=== PATIENT | female | born 1975 | race Caucasian/White ===

== ENCOUNTER 2023-06-10 23:45 | Inpatient (IN) ==
[2023-06-11] MEDS ORDERED: ONDANSETRON INJ 2 MG/ML 2 ML VIAL IV STA (00:01)
[2023-06-11] MEDS ORDERED: MoRPHine SULFATE 4 MG/ML 1 ML CARP\\VIAL IV STA ×2 (00:01→00:39)
--- NOTE | 2023-06-11 00:20 | Emergency Department Note ---
Impression & Plan Abdominal pain, Nausea & vomiting, Acute cholecystitis, Cholelithiasis, Choledocholithiasis ED Provider Note ED Provider Note NAME: ADI CISNEROS AGE:47 SEX: Female : 1975 ARRIVES VIA: private vehicle INFORMANT: Patient ED PROVIDER(s): Cha Madden DO CHIEF COMPLAINT: Abdominal pain, nausea and vomiting HPI: This is a 47-year-old female who presents emergency department due to concern for abdominal pain, nausea and vomiting. Patient states symptoms began almost 24 hours ago early in the morning of the and woke her up from sleep. She states she has epigastric abdominal pain that seems to radiate through to her right mid back and up under her right shoulder. She states she had nausea and recurrent vomiting. Patient states she vomited multiple times, no blood noted. She states after several hours the pain seemed to slowly resolve and she was able to sleep. She states she felt better during the day today and then this evening symptoms began again and were worsening. She states after several hours now the symptoms have not resolved. She states the pain is constant, and she cannot find a comfortable position. She states she had several episodes of vomiting again. No recent black or bloody stools. She does have a history of eosinophilic esophagitis although states this feels very different. She has had prior hysterectomy. No history of bowel obstructions. No other recent change in diet, no known sick contact. PAST MEDICAL HISTORY:See Below PAST SURGICAL HISTORY:See Below FAMILY HISTORY:See Below SOCIAL HISTORY:See Below HOME MEDICATIONS:See Below ALLERGIES:See Below VITALS:See Below PHYSICAL EXAMINATION: GENERAL: alert, unwell appearing, well nourished, moderate distress, holding emesis bag EYE EXAM: normal conjunctiva, PERRL and EOM's grossly intact OROPHARYNX: no exudate, no erythema, lips, buccal mucosa, and tongue normal and mucous membranes are moist NECK: supple, no nuchal rigidity, no adenopathy, non-tender LUNGS: Clear to auscultation. Normal chest wall mechanics, no w/r/r HEART: no murmurs, S1 normal and S2 normal ABDOMEN: abdomen soft, epigastric tenderness with palpation, normo-active bowel sounds, no masses, no rebound or guarding. BACK: Back is symmetrical on inspection and there is no deformity, no midline tenderness, no CVA tenderness. SKIN: no rashes, petechiae, orbruising UPPER EXTREMITIES: upper extremities are grossly normal. FROM, nml pulses b/l. LOWER EXTREMITIES: No pitting edema. FROM, nml pulses b/l. NEURO EXAM: Normal sensorium, cranial nerves II-XII grossly intact, normal speech, no facial droop,nogross weakness of arms, no gross weakness of legs. Gross sensation intact. No ataxia. Vital Signs: reviewed and remarkable Differential Diagnosis: Gastritis, esophagitis, perforation, GI bleed, cholecystitis, pancreatitis, colitis, bowel obstruction, ACS, dissection, as well as others were considered MEDICAL DECISION MAKING: This is a 47-year-old female presents emergency department with abdominal pain, nausea and vomiting. Patient uncomfortable appearing in moderate distress on arrival holding emesis bag. She was afebrile and vital signs otherwise stable, mild hypertension noted, likely secondary to pain. Labs drawn and sent, IV established, EKG performed at bedside and interpreted by me and patient monitored on telemetry. Patient sent for upper abdominal ultrasound which did reveal acute cholecystitis and choledocholithiasis. Patient's labs are reassuring. She was given IV fluids, IV Zofran, and several doses of IV morphine which did not significantly improve her pain. She was then given IV Dilaudid additionally and IV Tylenol. Patient seen by CICI with general surgery who recommended admission by hospitalist team to the need for additional GI consultation and likely MRCP. Consultation(s): 0310: Discussed with Dayday Zhang PA-C, with general surgery. He will evaluate the patient at bedside. Recommends hospitalist admission due to common bile duct stone and need for GI evaluation and possible MRCP. 0332: Discussed with Dr. Larkin, [facility] hospitalist team, for additional evaluation. ER Treatment Provided: See below Diagnostics Interpreted By Me: -ECG: Sinus bradycardia 55, left axis, normal intervals, no acute ST/T wave changes -Cardiac Monitoring: An order was placed for continuous cardiac monitoring. The monitor shows a rate of 78 with normal sinus rhythm. -Laboratory studies: As stated above and show below. -Imaging studies: [] Triage Nursing Note Reviewed Prior/Outside Records Reviewed Procedures: [] Critical Care: [] Past Med/Surg History Medical History Hypokalemia Flushing reaction Surgical History History of bladder surgery 2 different occasions History of surgery on left wrist History of tubal ligation History of tonsillectomy and adenoidectomy Family History Grandmother (Maternal) Colon cancer Colonic polyp Family/Other Obesity Social History Smoking Status: Never smoker Hx Alcohol Use: No Hx Substance Use: No Feels Safe at Home: Yes Allergies Allergies Allergy/AdvReac Type Severity Reaction Status Date / Time house dust Allergy Verified 04/11/21 09:34 mold Allergy Verified 04/11/21 09:34 No Known Drug Allergies Allergy Verified 04/11/21 09:34 cockroaches Allergy Uncoded 04/11/21 09:34 Home Meds Home Medications Medication Instructions Recorded Confirmed albuterol sulfate 90 mcg/actuation 1 inh inhalation DAILY PRN 04/11/21 04/11/21 aerosol inhaler (Ventolin HFA) shortness of breath or wheezing diphenhydramine HCl 25 mg capsule 25 mg PO .COMPLEX 04/11/21 04/11/21 (Benadryl) epinephrine 0.3 mg/0.3 mL 0.3 mg IM Q10M PRN 04/11/21 04/11/21 injection, auto-injector (EpiPen 2-Efrain) famotidine 10 mg tablet (Pepcid AC) 10 mg PO DAILY PRN 04/11/21 04/11/21 fluticasone propionate 50 2 spray intranasal DAILY PRN nasal 04/11/21 04/11/21 mcg/actuation nasal congestion spray,suspension Results & Data (ED) Vital Signs Vital Signs - 24 hr 06/10/23 23:51 06/11/23 02:00 Temperature 36.5 C Temperature Source Temporal Artery Scan Pulse Rate 77 Pulse Rate [Finger] 92 H Pulse Rhythm [Finger] Regular Pulse Strength [Finger] Normal Respiratory Rate 20 20 Respiratory Effort / Characteristics Non-Labored Spontaneous Non-Labored Spontaneous Respiratory Depth Normal Normal Respiratory Pattern Regular Blood Pressure 157/102 H Blood Pressure [Left Arm] 160/102 H Blood Pressure Mean 120 Blood Pressure Mean [Left Arm] 121 Blood Pressure Position Sitting Blood Pressure Position [Left Arm] Lying Pulse Oximetry 98 97 Oxygen Delivery Method Room Air Room Air Sepsis Recent Fever Within 48 Hours No Sepsis New/Unexplained Change in Mental Status N/A Sepsis Action Taken by Nursing No Action Required Laboratory Data 06/11/23 00:10 06/11/23 00:10 Lab Results 06/11/23 Range/Units 00:10 WBC 10.24 (4.8-10.8) K/ul RBC 4.89 (4.20-5.40) M/uL Hgb 12.8 (12.0-16.0) g/dl Hct 39.2 (37.0-47.0) % MCV 80.2 (80.0-100.0) fL MCH 26.2 (25.0-34.0) pg MCHC 32.7 (32.0-36.0) g/dL RDW Std Deviation 40.4 (36.4-46.3) fL RDW Coeff of María 14.0 (11.5-14.5) % Plt Count 323 (130-400) K/uL MPV 10.0 (9.4-12.4) fL Immature Gran % (Auto) 0.4 % Neut % (Auto) 74.8 % Lymph % (Auto) 18.8 % [place] % (Auto) 4.0 % Eos % (Auto) 1.6 % Baso % (Auto) 0.4 % Neut # (Auto) 7.66 H (1.40-6.50) K/uL Lymph # (Auto) 1.93 (1.20-3.40) K/uL [place] # (Auto) 0.41 (0.11-0.59) K/uL Eos # (Auto) 0.16 (0.00-0.50) K/uL Baso # (Auto) 0.04 (0.00-0.20) K/uL Immature Gran # (Auto) 0.04 (0.01-0.20) K/uL PT 10.5 (9.0-12.0) Seconds INR 1.0 (0.9-1.1) Sodium 140 (136-145) mmol/L Potassium 4.0 (3.5-5.1) mmol/L Chloride 107 (98-107) mmol/L Carbon Dioxide 24 (21-32) mmol/L Anion Gap 9 (3-11) BUN 18 (6-23) mg/dl Creatinine 0.64 (0.6-1.2) mg/dl Est Cr Clr Drug Dosing Not Reportable Est GFR ( Amer) 122.3 ml/min Est GFR (Non-Af Amer) 105.5 ml/min BUN/Creatinine Ratio 28.1 H (10-20) Glucose 107 H (70-99(Fasting)) mg/dl Calcium 9.9 (8.6-10.3) mg/dl Magnesium 1.9 (1.7-2.4) mg/dl Total Bilirubin 0.9 (0.2-1.0) mg/dl AST 15 (13-39) U/L ALT 11 (7-52) U/L Alkaline Phosphatase 72 (34-104) U/L Troponin I High Sens < 2.3 (0-14) pg/ml Total Protein 7.5 (6.0-8.3) gm/dl Albumin 4.3 (3.4-5.0) gm/dl Globulin 3.2 (2.5-4.0) gm/dl Albumin/Globulin Ratio 1.3 (0.9-2) Lipase 33 (11-82) U/L Administered Medications Hydromorphone HCl (Hydromorphone Inj 0.5 Mg/0.5 Ml Syr) 0.5 mg IV Q15M PRN PRN Reason: Pain Stop: 06/25/23 01:34 Last Admin: 06/11/23 03:31 Dose: 0.5 mg Documented By: Admin: 06/11/23 01:40 Dose: 0.5 mg Documented By: MIC Discontinued Medications Acetaminophen (Ofirmev) 1,000 mg in 100 mls @ 400 mls/hr IV NOW STA Stop: 06/11/23 01:56 Last Infusion: 06/11/23 02:09 Dose: Infused Documented By: Admin: 06/11/23 01:45 Dose: 400 mls/hr Documented By: MIC Morphine Sulfate (Morphine Sulfate 4 Mg/Ml 1 Ml Carp\Vial) 4 mg IV NOW STA Stop: 06/11/23 00:02 Last Admin: 06/11/23 00:16 Dose: 4 mg Documented By: NAW Morphine Sulfate (Morphine Sulfate 4 Mg/Ml 1 Ml Carp\Vial) 4 mg IV NOW STA Stop: 06/11/23 00:40 Last Admin: 06/11/23 00:42 Dose: 4 mg Documented By: MIC Ondansetron HCl (Ondansetron Inj 2 Mg/Ml 2 Ml Vial) 4 mg IV NOW STA Stop: 06/11/23 00:02 Last Admin: 06/11/23 00:16 Dose: 4 mg Documented By: MIC Imaging Data Radiologist's Impression: Abdomen Ultrasound 06/11/23 00:01 Exam(s): US ABDOMEN LIMITED EXAM: US Abdomen Limited, Right Upper Quadrant CLINICAL HISTORY: Reason for exam: epigastric pain. TECHNIQUE: Real-time ultrasound of the right upper quadrant with image documentation. COMPARISON: None FINDINGS: Liver: Liver measures 18.1 cm. Small hepatic cyst measuring up to 2.2 cm. No intrahepatic bile duct dilation. Gallbladder: Stones and sludge in the gallbladder. Distention of the gallbladder. Nonspecific gallbladder wall thickening and pericholecystic fluid. Positive sonographic Campos's sign. Findings are concerning for acute cholecystitis. Common bile duct: Small stone in the common bile duct measuring 5 mm. No dilation. Normal common bile duct measuring 5.7 mm. Pancreas: Pancreas is not well evaluated due to overlying bowel gas. Right kidney: Right kidney measures 10.7 cm in length. No hydronephrosis or stone. Other vasculature: Patent main portal vein with normal direction of flow. IMPRESSION: Small stone in the common bile duct measuring 5 mm. Stones and sludge in the gallbladder. Gallbladder wall thickening, pericholecystic fluid, and positive sonographic Campos's sign, suggesting acute cholecystitis. Electronically signed by: Natividad Simeon M.D. 06/11/23 03:10 AM Discharge Plan Visit Data Chief Complaint: Abdominal Pain ED Provider: Cha Madden Discharge Problem: Abdominal pain, Nausea & vomiting, Acute cholecystitis, Cholelithiasis, Choledocholithiasis Forms Stand Alone Forms: [facility] Prescriptions Prescriptions: No Action albuterol sulfate [Ventolin HFA] 90 mcg/actuation HFA aerosol inhaler 1 inh inhalation DAILY PRN (Reason: shortness of breath or wheezing) epinephrine [EpiPen 2-Efrain] 0.3 mg/0.3 mL auto-injector 0.3 mg IM Q10M PRN Rx Instructions: for 2 doses famotidine [Pepcid AC] 10 mg tablet 10 mg PO DAILY PRN diphenhydramine HCl [Benadryl] 25 mg capsule 25 mg PO .COMPLEX Rx Instructions: 25 mg PO as needed; fluticasone propionate 50 mcg/actuation spray,suspension 2 spray intranasal DAILY PRN (Reason: nasal congestion) Rx Instructions: administer into each nostril Referrals Referrals: Rd Zaldivar [Primary Care Provider] -
[2023-06-11 00:26] LABS: Basophils # (auto) 0.04 K/uL (0.00-0.20); Basophils % (auto) 0.4 %; Eosinophils # (auto) 0.16 K/uL (0.00-0.50); Eosinophils % (auto) 1.6 %; Hematocrit (blood only) 39.2 % (37.0-47.0); Hemoglobin 12.8 g/dl (12.0-16.0); Immature Granulocytes # (auto) 0.04 K/uL (0.01-0.20); Immature Granulocytes % (auto) 0.4 %; Lymphocytes # (auto) 1.93 K/uL (1.20-3.40); Lymphocytes % (auto) 18.8 %; Mean Corpuscular Hemoglobin 26.2 pg (25.0-34.0); Mean Corpuscular Hgb Conc 32.7 g/dL (32.0-36.0); Mean Corpuscular Volume 80.2 fL (80.0-100.0); Monocytes # (auto) 0.41 K/uL (0.11-0.59); Neutrophils # (auto) 7.66 K/uL (1.40-6.50); Neutrophils % (auto) 74.8 %; Platelet Count 323 K/uL (130-400); RDW Standard Deviation 40.4 fL (36.4-46.3); Red Blood Count 4.89 M/uL (4.20-5.40); White Blood Count 10.24 K/ul (4.8-10.8)
[2023-06-11 00:39] LABS: Alanine Aminotransferase 11 U/L (7-52); Albumin Globulin Ratio 1.3 (0.9-2); Albumin Level 4.3 gm/dl (3.4-5.0); Alkaline Phosphatase 72 U/L (34-104); Anion Gap 9 (3-11); Aspartate Aminotransferase 15 U/L (13-39); BUN Creatinine Ratio 28.1 (10-20); Bilirubin,Total 0.9 mg/dl (0.2-1.0); Blood Urea Nitrogen 18 mg/dl (6-23); Calcium 9.9 mg/dl (8.6-10.3); Carbon Dioxide 24 mmol/L (21-32); Chloride 107 mmol/L (98-107); Est GFR (African American) 122.3 ml/min; Est GFR (Non-African American) 105.5 ml/min; Globulin 3.2 gm/dl (2.5-4.0); Glucose 107 mg/dl (70-99(Fasting)); Lipase 33 U/L (11-82); Magnesium 1.9 mg/dl (1.7-2.4); Sodium 140 mmol/L (136-145); Total Protein 7.5 gm/dl (6.0-8.3)
[2023-06-11 00:46] LABS: Troponin I High Sensitivity < 2.3 pg/ml (0-14)
[2023-06-11 00:57] LABS: Prothrombin Time 10.5 Seconds (9.0-12.0)
[2023-06-11] MEDS: HYDROmorphone INJ 0.5 MG/0.5 ML SYR IV PRN ×8 (01:40→23:35)
[2023-06-11] MEDS ORDERED: ACETAMINOPHEN 1,000 MG/100 ML VIAL IV STA (01:42)
--- NOTE | 2023-06-11 03:11 | Ultrasound Report ---
Exam(s): US ABDOMEN LIMITED EXAM: US Abdomen Limited, Right Upper Quadrant CLINICAL HISTORY: Reason for exam: epigastric pain. TECHNIQUE: Real-time ultrasound of the right upper quadrant with image documentation. COMPARISON: None FINDINGS: Liver: Liver measures 18.1 cm. Small hepatic cyst measuring up to 2.2 cm. No intrahepatic bile duct dilation. Gallbladder: Stones and sludge in the gallbladder. Distention of the gallbladder. Nonspecific gallbladder wall thickening and pericholecystic fluid. Positive sonographic Campos's sign. Findings are concerning for acute cholecystitis. Common bile duct: Small stone in the common bile duct measuring 5 mm. No dilation. Normal common bile duct measuring 5.7 mm. Pancreas: Pancreas is not well evaluated due to overlying bowel gas. Right kidney: Right kidney measures 10.7 cm in length. No hydronephrosis or stone. Other vasculature: Patent main portal vein with normal direction of flow. IMPRESSION: Small stone in the common bile duct measuring 5 mm. Stones and sludge in the gallbladder. Gallbladder wall thickening, pericholecystic fluid, and positive sonographic Campos's sign, suggesting acute cholecystitis. Electronically signed by: Natividad Simeon M.D. 06/11/23 03:10 AM
--- NOTE | 2023-06-11 03:30 | Surgery Consultation ---
Date of Consultation June 11, 2023 Assessment & Plan (1) Choledocholithiasis: (2) Cholelithiasis: I discussed with the treating emergency room physician and recommended medical admission. From surgical perspective we recommend proceeding as follows: Provide analgesics Provide antiemetics Recommend initiating antibiotics. The patient does note that she does not have any known medicines that cause anaphylaxis. Provide IV fluid for hydration Implement n.p.o. status Appears that the patient has cholecystitis by ultrasound and she will likely require cholecystectomy at some point. However, it does appear that the patient has choledocholithiasis on ultrasound and therefore it be prudent to obtain a gastroenterology consultation as patient will likely require an ERCP prior to undergoing cholecystectomy. Serial labs to be followed Additional recommendations will be forthcoming based on the patient's clinical course as unfolds as well as recommendations made by the gastroenterology service Supervising Physician Co-Signing Physician Notes Patient seen and examined, labs and imaging reviewed, agree with above. 47-year-old female presented with signs and symptoms of cholecystitis, ultrasound showed common bile duct stone as well. On exam she is afebrile with stable vitals, her abdomen is soft, tender to palpation in the right upper quadrant. Labs unremarkable. Ultrasound showed cholelithiasis with cholecystitis and 5 mm common bile duct stone. Admitted to medicine service, GI consulted, however there is no biliary coverage until Wednesday. The patient is currently stable, but given the common bile duct stone and the risk for cholangitis, recommend patient transfer to facility with ERCP coverage. History of Present Illness Reason for Consultation: Cholecystitis History of Present Illness This is a 47-year-old female who presented to the emergency department secondary to abdominal pain. The patient notes that the pain began yesterday and was located in the epigastric area as well as the right upper quadrant with some radiation to her back. She notes that the pain is palliated with medicines administered in the emergency department. She did not readily identify any provocative factors specifically noting that it was not apparent that this was related to meals. She did have nausea and vomiting. She denies any fevers, shakes, or chills. She notes that she has had prior abdominal surgeries in the form of a hysterectomy as well as a bladder tacking on 2 occasions. 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 In addition she reports a history of eosinophilic esophagitis Since arrival to the hospital the patient has had labs and imaging which I independent reviewed. A gallbladder ultrasound showed the patient had stones and sludge in the gallbladder with gallbladder wall thickening as well as pericholecystic fluid which were concerning for acute cholecystitis. The patient was also noted to have choledocholithiasis with a 5 mm stone in the co mmon bile duct. Labs include a CBC her white blood cell count, hemoglobin, hematocrit, and platelet count were normal. Chemistry profile showed sodium and potassium along with the BUN and creatinine were normal. There is no elevation of patient's bilirubin, transaminases, alkaline phosphatase, or lipase. At the time of my interview she was resting comfortably in bed and she was no distress Allergies Allergy/AdvReac Type Severity Reaction Status Date / Time house dust Allergy Verified 04/11/21 09:34 mold Allergy Verified 04/11/21 09:34 No Known Drug Allergies Allergy Verified 04/11/21 09:34 cockroaches Allergy Uncoded 04/11/21 09:34 Home Medications Medication Instructions Recorded Confirmed Type albuterol sulfate 90 mcg/actuation 1 inh inhalation DAILY PRN 04/11/21 06/11/23 History aerosol inhaler (Ventolin HFA) shortness of breath or wheezing diphenhydramine HCl 25 mg capsule 25 mg PO DAILY PRN Allergic 04/11/21 06/11/23 History (Benadryl) Symptoms epinephrine 0.3 mg/0.3 mL 0.3 mg IM Q10M PRN Allergic 04/11/21 06/11/23 History injection, auto-injector (EpiPen Reaction 2-Efrain) famotidine 10 mg tablet (Pepcid AC) 10 mg PO DAILY PRN Heartburn 04/11/21 06/11/23 History fluticasone propionate 50 2 spray intranasal DAILY PRN nasal 04/11/21 06/11/23 History mcg/actuation nasal congestion spray,suspension doxylamine succinate 25 mg tablet 25 mg PO HS PRN Sleep 06/11/23 06/11/23 History (Unisom (doxylamine)) Patient History Medical History (Updated 06/11/23 @ 04:26 by Darin Larkin MD) Choledocholithiasis Idiopathic anaphylaxis Eosinophilic esophagitis Hypokalemia Flushing reaction Surgical History History of bladder surgery 2 different occasions History of surgery on left wrist History of tubal ligation History of tonsillectomy and adenoidectomy Family History Grandmother (Maternal) Colon cancer Colonic polyp Family/Other Obesity Social History Smoking Status: Never smoker Hx Alcohol Use: No Hx Substance Use: No Preferred Language: Polish Communication Ability: Effective 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 Beliefs That Will Affect Care: None Current Living Situation: Spouse Other Information That Helps Us Care for You: No Feels Safe at Home: Yes Safety Concerns: Feels Safe At This Time Assistive Devices: Glasses Review of Systems Constitutional: no fever and no chills Ear, Nose, Mouth, Throat: no hearing loss Respiratory: no cough and no dyspnea Cardiovascular: no chest pain Gastrointestinal: as per Subjective / HPI Genitourinary: no dysuria Musculoskeletal: + back pain (Radiating from right upper quadrant) Integumentary: no rash Neurologic: no localized weakness Physical Exam Constitutional: WD/WN, vitals as above Eyes: + anicteric sclerae ENMT: Ears: no hearing impairment and no external ear abnormality Mouth: no oropharynx abnormality No sublingual jaundice noted Neck: trachea midline Respiratory: normal respiratory effort; no respiratory distress and no labored breathing Cardiovascular: Rate/Rhythm: regular rate and regular rhythm Gastrointestinal (Abdomen): Abdomen is soft, nondistended, nonrigid. Bowel sounds are present. There is no rebound tenderness or guarding. The patient did have pain with palpation in the right upper quadrant with a positive Campos sign Musculoskeletal: No calf tenderness Skin: no jaundice Neurologic: moves all extremities Psychiatric: A+Ox3, euthymic affect Results & Data Vital Signs (Past 12 Hours) Vital Signs Temp Pulse Pulse Resp BP BP Pulse Ox 06/11/23 02:00 92 H 20 160/102 H 97 06/10/23 23:51 36.5 C 77 20 157/102 H 98 O2 Del Method 06/11/23 02:00 Room Air 06/10/23 23:51 Room Air PG Care Time/CCT Total # of Minutes Spent Total Time Spent with Patient: Total time spent is greater than 50% in coordination of care (as documented) at patient's floor/unit and/or counseling patient: Coding Level of Care Code 61307 IN/OBS CONSULT LVL 5,80M Diagnoses Choledocholithiasis K80.50 Cholelithiasis K80.20
[2023-06-11] MEDS ORDERED: PIPERACILLIN/TAZOBACTAM 4.5 GM/100 ML BAG IV ONE (03:41)
--- NOTE | 2023-06-11 04:19 | History & Physical Report ---
Date of Service June 11, 2023 Assessment & Plan (1) Acute cholecystitis: (2) Choledocholithiasis: (3) Cholelithiasis: (4) Nausea & vomiting: (5) Abdominal pain: (6) Eosinophilic esophagitis: (7) Idiopathic anaphylaxis: Plan Acute cholecystitis/choledocholithiasis with common bile duct stone 5 mm/cholelithiasis/gallstones and sludge- NPO except ice chips Zofran 4 mg IV every 6 hours as needed Zosyn 4.5 g IV every 8 hours Acetaminophen 1 g IV every 8 hours as needed for mild pain or fever Dilaudid 0.25 mg IV every 3 hours as needed for moderate pain Dilaudid 0.5 mg IV every 3 hours as needed for severe pain NSS + KCl 20 mill equivalents at 100 mL/h Consult to gastroenterology Consult to general surgery Eosinophilic esophagitis- Patient is on oral fluticasone daily, famotidine daily as needed, and diphenhydramine daily as needed, and epinephrine autoinjector as needed While in the hospital and n.p.o. she will be on the following: Methylprednisolone 10 mg IV daily Pantoprazole 40 mg IV daily Famotidine 20 mg IV every 12 hours Idiopathic anaphylaxis- Methylprednisolone, pantoprazole and famotidine IV as noted above Albuterol HFA 2 puffs every 6 hours as needed History of Present Illness Chief Complaint: The patient presents to the emergency department with complaint of nausea, vomiting, epigastric pain radiating around to her right flank, with her first episode at 2:45 in the morning of 06/10, and recurrence later on in the evening of 06/10 Primary Care Provider: Rd Zaldivar The patient is a 47-year-old female with a past medical history including eosinophilic esophagitis, idiopathic anaphylaxis, asthma, and GERD. She presents to the emergency department with symptoms as noted above. Ultrasound of right upper quadrant of abdomen showed gallstones and sludge in the gallbladder, a common bile duct 5 mm stone, and gallbladder wall thickening with pericholecystic fluid suggesting acute cholecystitis Allergies Allergy/AdvReac Type Severity Reaction Status Date / Time house dust Allergy Verified 04/11/21 09:34 mold Allergy Verified 04/11/21 09:34 No Known Drug Allergies Allergy Verified 04/11/21 09:34 cockroaches Allergy Uncoded 04/11/21 09:34 Home Medications Medication Instructions Recorded Confirmed Type albuterol sulfate 90 mcg/actuation 1 inh inhalation DAILY PRN 04/11/21 04/11/21 History aerosol inhaler (Ventolin HFA) shortness of breath or wheezing diphenhydramine HCl 25 mg capsule 25 mg PO .COMPLEX 04/11/21 04/11/21 History (Benadryl) epinephrine 0.3 mg/0.3 mL 0.3 mg IM Q10M PRN 04/11/21 04/11/21 History injection, auto-injector (EpiPen 2-Efrain) famotidine 10 mg tablet (Pepcid AC) 10 mg PO DAILY PRN 04/11/21 04/11/21 History fluticasone propionate 50 2 spray intranasal DAILY PRN nasal 04/11/21 04/11/21 History mcg/actuation nasal congestion spray,suspension Past Med/Surg History Medical History (Updated 06/11/23 @ 04:26 by Darin Larkin MD) Choledocholithiasis Idiopathic anaphylaxis Eosinophilic esophagitis Hypokalemia Flushing reaction Surgical History History of bladder surgery 2 different occasions History of surgery on left wrist History of tubal ligation History of tonsillectomy and adenoidectomy Family History Grandmother (Maternal) Colon cancer Colonic polyp Family/Other Obesity Social History Smoking Status: Never smoker Hx Alcohol Use: No Hx Substance Use: No Feels Safe at Home: Yes Review of Systems Review of Systems: The patient denies chest pain, palpitations, shortness of breath, dyspnea on exertion, cough, lower extremity swelling, sore throat, fevers, chills, sweats, fatigue, diarrhea , constipation,blood in urine or stool, dysuria, urinary frequency or urgency, lightheadedness, dizziness, headache, memory loss, loss of consciousness, rash, abnormal bruising or bleeding, imbalance, focal or generalized weakness, numbness or tingling in arms or legs, generalized arthralgias or myalgias, neck pain, or night sweats. The review of systems is otherwise negative other than for that already noted above, and at least 10 systems have been reviewed. Physical Exam Physical Exam: The patient is awake, alert and oriented 3, well developed and well nourished, normocephalic and atraumatic, lying in bed and in no acute distress. HEENT--PERRL, EOMI, mucous membranes and oropharynx mildly dry. Neck--supple. No JVD. No bruits. Thyroid normal, trachea midline, no adenopathy. Heart--normal S1 and S2. No murmurs, rubs or gallops. Lungs--clear bilaterally, no respiratory distress, no accessory muscle use. Abdomen--normal bowel sounds and soft. Mild tenderness epigastric and right upper quadrant. No hernias or masses, no organomegaly. Morbidly obese Extremities--no cyanosis or clubbing. No edema. Dermatologic--normal skin turgor, normal color, no abnormal lymph nodes, no rash. Neurologic--cranial nerves II through XII grossly intact. Rheumatologic--normal range of motion. Psychiatric--normal affect. Results & Data Results & Data Vital Signs (Past 12 Hours) Vital Signs Temp Pulse Pulse Resp BP BP Pulse Ox 06/11/23 02:00 92 H 20 160/102 H 97 06/10/23 23:51 36.5 C 77 20 157/102 H 98 O2 Del Method 06/11/23 02:00 Room Air 06/10/23 23:51 Room Air Laboratory Results Laboratory Results WBC 10.24 K/ul (4.8-10.8) 06/11/23 00:10 RBC 4.89 M/uL (4.20-5.40) 06/11/23 00:10 Hgb 12.8 g/dl (12.0-16.0) 06/11/23 00:10 Hct 39.2 % (37.0-47.0) 06/11/23 00:10 MCV 80.2 fL (80.0-100.0) 06/11/23 00:10 MCH 26.2 pg (25.0-34.0) 06/11/23 00:10 MCHC 32.7 g/dL (32.0-36.0) 06/11/23 00:10 RDW Std Deviation 40.4 fL (36.4-46.3) 06/11/23 00:10 RDW Coeff of María 14.0 % (11.5-14.5) 06/11/23 00:10 Plt Count 323 K/uL (130-400) 06/11/23 00:10 MPV 10.0 fL (9.4-12.4) 06/11/23 00:10 Immature Gran % (Auto) 0.4 % 06/11/23 00:10 Neut % (Auto) 74.8 % 06/11/23 00:10 Lymph % (Auto) 18.8 % 06/11/23 00:10 [place] % (Auto) 4.0 % 06/11/23 00:10 Eos % (Auto) 1.6 % 06/11/23 00:10 Baso % (Auto) 0.4 % 06/11/23 00:10 Neut # (Auto) 7.66 K/uL (1.40-6.50) H 06/11/23 00:10 Lymph # (Auto) 1.93 K/uL (1.20-3.40) 06/11/23 00:10 [place] # (Auto) 0.41 K/uL (0.11-0.59) 06/11/23 00:10 Eos # (Auto) 0.16 K/uL (0.00-0.50) 06/11/23 00:10 Baso # (Auto) 0.04 K/uL (0.00-0.20) 06/11/23 00:10 Immature Gran # (Auto) 0.04 K/uL (0.01-0.20) 06/11/23 00:10 PT 10.5 Seconds (9.0-12.0) 06/11/23 00:10 INR 1.0 (0.9-1.1) 06/11/23 00:10 Sodium 140 mmol/L (136-145) 06/11/23 00:10 Potassium 4.0 mmol/L (3.5-5.1) 06/11/23 00:10 Chloride 107 mmol/L (98-107) 06/11/23 00:10 Carbon Dioxide 24 mmol/L (21-32) 06/11/23 00:10 Anion Gap 9 (3-11) 06/11/23 00:10 BUN 18 mg/dl (6-23) 06/11/23 00:10 Creatinine 0.64 mg/dl (0.6-1.2) 06/11/23 00:10 Est Cr Clr Drug Dosing Not Reportable 06/11/23 00:10 Est GFR ( Amer) 122.3 ml/min 06/11/23 00:10 Est GFR (Non-Af Amer) 105.5 ml/min 06/11/23 00:10 BUN/Creatinine Ratio 28.1 (10-20) H 06/11/23 00:10 Glucose 107 mg/dl (70-99(Fasting)) H 06/11/23 00:10 Calcium 9.9 mg/dl (8.6-10.3) 06/11/23 00:10 Magnesium 1.9 mg/dl (1.7-2.4) 06/11/23 00:10 Total Bilirubin 0.9 mg/dl (0.2-1.0) 06/11/23 00:10 AST 15 U/L (13-39) 06/11/23 00:10 ALT 11 U/L (7-52) 06/11/23 00:10 Alkaline Phosphatase 72 U/L (34-104) 06/11/23 00:10 Troponin I High Sens < 2.3 pg/ml (0-14) 06/11/23 00:10 Total Protein 7.5 gm/dl (6.0-8.3) 06/11/23 00:10 Albumin 4.3 gm/dl (3.4-5.0) 06/11/23 00:10 Globulin 3.2 gm/dl (2.5-4.0) 06/11/23 00:10 Albumin/Globulin Ratio 1.3 (0.9-2) 06/11/23 00:10 Lipase 33 U/L (11-82) 06/11/23 00:10 Impressions Abdomen Ultrasound 06/11/23 00:01 Exam(s): US ABDOMEN LIMITED EXAM: US Abdomen Limited, Right Upper Quadrant CLINICAL HISTORY: Reason for exam: epigastric pain. TECHNIQUE: Real-time ultrasound of the right upper quadrant with image documentation. COMPARISON: None FINDINGS: Liver: Liver measures 18.1 cm. Small hepatic cyst measuring up to 2.2 cm. No intrahepatic bile duct dilation. Gallbladder: Stones and sludge in the gallbladder. Distention of the gallbladder. Nonspecific gallbladder wall thickening and pericholecystic fluid. Positive sonographic Campos's sign. Findings are concerning for acute cholecystitis. Common bile duct: Small stone in the common bile duct measuring 5 mm. No dilation. Normal common bile duct measuring 5.7 mm. Pancreas: Pancreas is not well evaluated due to overlying bowel gas. Right kidney: Right kidney measures 10.7 cm in length. No hydronephrosis or stone. Other vasculature: Patent main portal vein with normal direction of flow. IMPRESSION: Small stone in the common bile duct measuring 5 mm. Stones and sludge in the gallbladder. Gallbladder wall thickening, pericholecystic fluid, and positive sonographic Campos's sign, suggesting acute cholecystitis. Electronically signed by: Natividad Simeon M.D. 06/11/23 03:10 AM Code Status & VTE Plan Code Status Full code VTE Prophylaxis Plan VTE Prophylaxis will be ordered: Yes PG Care Time/CCT Total # of Minutes Spent Total Time Spent with Patient: Total time spent is greater than 50% in coordination of care (as documented) at patient's floor/unit and/or counseling patient: Coding Level of Care Code 47505 INT INP/OBS CARE 3/75MIN Diagnoses Acute cholecystitis K81.0 Choledocholithiasis K80.50 Cholelithiasis K80.20 Nausea & vomiting R11.2 Abdominal pain R10.9 Eosinophilic esophagitis K20.0 Idiopathic anaphylaxis T78.2XXA
--- NOTE | 2023-06-11 04:31 | Billing Data ---
Date of Service June 11, 2023 Coding Level of Care Code 39013 INT INP/OBS CARE
[2023-06-11] MEDS ORDERED: HYDROmorphone INJ 0.5 MG/0.5 ML SYR IV PRN (05:27)
[2023-06-11] MEDS ORDERED: diphenhydrAMINE 50 MG/ML VIAL IV PRN (05:27)
[2023-06-11] MEDS ORDERED: Patient's HEIGHT &/or WEIGHT Needed ONE (05:45)
[2023-06-11] MEDS: NSS + 20MEQ KCL 20 MEQ/1,000 ML BAG IV SCH ×2 (05:49→19:48)
[2023-06-11] MEDS: ONDANSETRON INJ 2 MG/ML 2 ML VIAL IV PRN ×3 (05:59→23:35)
[2023-06-11] MEDS: FAMOTIDINE 20 MG in SYRINGE 3 ML IV SCH ×2 (08:56→20:43)
[2023-06-11] MEDS ORDERED: methylPREDNISolone 10 MG in SYRINGE 0 ML IV SCH (09:00)
[2023-06-11] MEDS ORDERED: INFLUENZA VIRUS QUADRIVALENT VACCINE (IIV4) 0.5 ML SYR IM ONE (09:00)
--- NOTE | 2023-06-11 09:24 | Hospitalist Progress Note ---
Date of Service June 11, 2023 Assessment & Plan (1) Acute cholecystitis: (2) Choledocholithiasis: (3) Cholelithiasis: (4) Nausea & vomiting: (5) Abdominal pain: (6) Eosinophilic esophagitis: (7) Idiopathic anaphylaxis: Plan Acute cholecystitis/choledocholithiasis with common bile duct stone 5 mm/cholelithiasis/gallstones and sludge- NPO except ice chips Zofran 4 mg IV every 6 hours as needed Zosyn 4.5 g IV every 8 hours Acetaminophen 1 g IV every 8 hours as needed for mild pain or fever Dilaudid 0.25 mg IV every 3 hours as needed for moderate pain Dilaudid 0.5 mg IV every 3 hours as needed for severe pain NSS + KCl 20 mill equivalents at 100 mL/h Consult to gastroenterology Consult to general surgery Eosinophilic esophagitis- Patient is on oral fluticasone daily, famotidine daily as needed, and diphenhydramine daily as needed, and epinephrine autoinjector as needed While in the hospital and n.p.o. she will be on the following: Methylprednisolone 10 mg IV daily Pantoprazole 40 mg IV daily Famotidine 20 mg IV every 12 hours Idiopathic anaphylaxis- Methylprednisolone, pantoprazole and famotidine IV as noted above Albuterol HFA 2 puffs every 6 hours as needed Admission and Anticipated Discharge Date Admission Date: June 11, 2023 Subjective 0905 - Patient seen lying in bed. Reports that the pain medication is keeping her comfortable. No further episodes of pain. Has not seen the GI specialist yet. Does report that she feels like she can't take a deep breath when the pain medications wears off. Eosinophilic esophagitis is at baseline. Urinating without issue, has not had a BM yet. Denies CP or SOB. Tele: NSR 60s Results & Data Results & Data Vital Signs (Past 12 Hours) Vital Signs Temp Pulse Pulse Resp BP BP BP 06/11/23 08:21 68 06/11/23 08:12 79 18 155/93 H 06/11/23 08:11 68 16 155/93 H 06/11/23 06:00 06/11/23 04:32 65 18 142/84 H 06/11/23 02:00 92 H 20 160/102 H 06/10/23 23:51 36.5 C 77 20 157/102 H Pulse Ox Pulse Ox O2 Del Method O2 Del Method 06/11/23 08:21 06/11/23 08:12 97 Room Air 06/11/23 08:11 96 Room Air 06/11/23 06:00 97 Room Air 06/11/23 04:32 97 Room Air 06/11/23 02:00 97 Room Air 06/10/23 23:51 98 Room Air PG Care Time/CCT Total # of Minutes Spent Total Time Spent with Patient: Total time spent is greater than 50% in coordination of care (as documented) at patient's floor/unit and/or counseling patient: Coding Diagnoses Acute cholecystitis K81.0 Choledocholithiasis K80.50 Cholelithiasis K80.20 Nausea & vomiting R11.2 Abdominal pain R10.9 Eosinophilic esophagitis K20.0 Idiopathic anaphylaxis T78.2XXA
[2023-06-11] MEDS ORDERED: ACETAMINOPHEN 1,000 MG/100 ML VIAL IV PRN (10:00)
[2023-06-11] MEDS: PIPERACILLIN/TAZOBACTAM 4.5 GM in DEXTROSE 5% MINI-B 100 ML IV SCH ×2 (10:29→18:48)
[2023-06-11] MEDS ORDERED: PANTOprazole 40 MG in SYRINGE 0 ML IV SCH (11:00)
[2023-06-11] MEDS ORDERED: LORazepam 0.5 MG TAB PO STA (11:38)
--- NOTE | 2023-06-11 14:16 | Magnetic Resonance Report ---
MR MRCP HISTORY: Epigastric pain. ?CBD stone, study needed prior to transfer TECHNIQUE: MRCP of the abdomen was performed without contrast according to standard departmental prot ocol. COMPARISON STUDY: Abdominal ultrasound 06/11/2023. FINDINGS: The lung bases are clear. Normal marrow signal intensity seen throughout the visualized oss eous structures. The spleen, adrenal glands, and right kidney are unremarkable. There is a 1.7 cm T2 hyperintense lesion within the left kidney and a 1.7 cm T2 hyperintense lesion within the central asp ect of the liver. These are incompletely characterized on this noncontrast study but favor cysts. No retroperitoneal lymphadenopathy. Normal caliber abdominal aorta. The visualized loops of bowel show n o wall thickening or obstruction. Normal pancreas. The pancreatic duct is normal in course and calibe r. Small amount of peripancreatic ascites. There is also extensive pericholecystic fluid with peripor [place] fluid which partially surrounds the second portion of duodenum and pancreatic head. The gallbladd er is markedly distended and there is gallbladder wall thickening with multiple small gallstones. Nor mal caliber common bile duct measuring up to 5 mm. Possible 4 mm lobular filling defect seen at the d istal common bile duct on image 100 series 8. This could represent a common bile duct stone. There is moderate to severe smooth narrowing at the proximal common hepatic duct near the confluence of the e xtra hepatic bile ducts. However, there is no significant intrahepatic bile duct dilatation. IMPRESSION: 1. Markedly distended gallbladder with gallbladder wall thickening and multiple small gallstones. The re is also extensive pericholecystic fluid with fluid at the [place] hepatis and surrounding the liver, proximal duodenum, and pancreatic head. This is likely reactive to the suspected acute cholecystitis . Urgent surgical consultation recommended. 2. Possible 4 mm filling defect within the distal common bile duct as described above. This could rep resent a common bile duct stone. However, the common bile duct remains normal in caliber. 3. Focal smooth moderate to severe narrowing at the proximal common hepatic duct near the confluence. Consider ERCP for further evaluation. 4. There is no intrahepatic bile duct dilatation identified. ACT 112: Negative or not required by law. Electronically signed by: Scout Rubio M.D. 06/11/2023 2:15 PM
--- NOTE | 2023-06-11 16:34 | Discharge Summary ---
Discharge Summary Date of Service June 11, 2023 Admission HPI Per Admitting Provider The patient is a 47-year-old female with a past medical history including eosinophilic esophagitis, idiopathic anaphylaxis, asthma, and GERD. She presents to the emergency department with nausea, vomiting, epigastric pain radiating around to her right flank, with her first episode at 2:45 in the morning of 06/10, and recurrence later on in the evening of 06/10. Ultrasound of right upper quadrant of abdomen showed gallstones and sludge in the gallbladder, a common bile duct 5 mm stone, and gallbladder wall thickening with pericholecystic fluid suggesting acute cholecystitis Principal Dx & Hospital Course #1 = Principal Diagnosis (1) Acute cholecystitis: Acute cholecystitis/choledocholithiasis with common bile duct stone 5 mm/cholelithiasis/gallstones and sludge--> MRCP confirms this -NPO except ice chips -Zofran 4 mg IV every 6 hours as needed -Zosyn 4.5 g IV every 8 hours -Acetaminophen 1 g IV every 8 hours as needed for mild pain or fever -Dilaudid 0.25 mg IV every 3 hours as needed for moderate pain -Dilaudid 0.5 mg IV every 3 hours as needed for severe pain -NSS + KCl 20 mill equivalents at 100 mL/h Consult to gastroenterology - needs ERCP but not available at our center, will transfer to [facility] Consult to general surgery - needs cholecystectomy after ERCP (2) Choledocholithiasis: Seen on US and confirmed with MRCP - Transfer to [facility] as above (3) Cholelithiasis: - Transfer to [facility] as above (4) Nausea & vomiting: - stable now that her pain is controlled, does feel nauseous with movement - PRN IV zofran (5) Eosinophilic esophagitis: Patient is on oral fluticasone daily, famotidine daily as needed, and diphenhydramine daily as needed, and epinephrine autoinjector as needed While in the hospital and n.p.o. she will be on the following: Methylprednisolone 10 mg IV daily Pantoprazole 40 mg IV daily Famotidine 20 mg IV every 12 hours (6) Idiopathic anaphylaxis: Idiopathic anaphylaxis- Methylprednisolone, pantoprazole and famotidine IV as noted above Albuterol HFA 2 puffs every 6 hours as needed Plan Dispo - transfer to [facility], accepting physician Dr. Tiana Rivas Discharge Exam General: WN/WD, NAD, VS as above Resp: normal respiratory effort, lungs clear to auscultation CV: RRR, no murmur, no edema Abd: normal bowel sounds, tender RUQ Extremities: Moves all extremities, no edema Neuro: A&O x3, Skin: intact, no lesions noted Updated Medication List Medication Instructions Recorded Confirmed Type albuterol sulfate 90 mcg/actuation 1 inh inhalation DAILY PRN 04/11/21 06/11/23 History aerosol inhaler (Ventolin HFA) shortness of breath or wheezing diphenhydramine HCl 25 mg capsule 25 mg PO DAILY PRN Allergic 04/11/21 06/11/23 History (Benadryl) Symptoms epinephrine 0.3 mg/0.3 mL 0.3 mg IM Q10M PRN Allergic 04/11/21 06/11/23 History injection, auto-injector (EpiPen Reaction 2-Efrain) famotidine 10 mg tablet (Pepcid AC) 10 mg PO DAILY PRN Heartburn 04/11/21 06/11/23 History fluticasone propionate 50 2 spray intranasal DAILY PRN nasal 04/11/21 06/11/23 History mcg/actuation nasal congestion spray,suspension doxylamine succinate 25 mg tablet 25 mg PO HS PRN Sleep 06/11/23 06/11/23 History (Unisom (doxylamine)) ondansetron HCl (PF) 4 mg/2 mL 4 mg (2 mL) IV Q6H PRN nausea and 06/11/23 Rx injection solution vomiting 20 days #1 mL Hospital Stay Data Consultations 06/11/23 03:22 ED Decision to Admit Stat 06/11/23 04:02 Consult General Surgery Routine 06/11/23 15:19 Burn CD for patient Stat Diagnostic Imagining Performed 06/11/23 00:01 US abdomen limited Stat 06/11/23 11:05 MR MRCP Stat Pending Results Patient Have Any Pending Studies at Discharge: No Discharge Instructions Given to Patient (Per Discharging Provider) Follow up instructions will be determined by [facility] physician's after you are seen there. Total Time Total Time Spent Total Time Spent (In Minutes): 35 Supervising Physician Co-Signing Physician Notes Attending Attestation and Discharge Note: Pt seen/examined, chart reviewed, care plan d/w KENDALL Desai. I agree with the farias components of her documentation. Hieu 47yo female with h/o eosinophilic esophagitis who presented with 24 hours of nausea, emesis, and RUQ abd pain. RUQ u/s with findings highly suggestive of acute cholecystitis with possible choledocholithiasis. Placed on IV abx therapy, IV fluids, and kept NPO, Seen by gen surg who was willing to perform lap salvador but would need ERCP prior to such due to concern of CBD stone. No ERCP capability was available today or tomorrow thus [facility] was contacted for possible transfer. They advised MRCP to confirm choledocholithiasis prior to them accepting in transfer. MRCP showed probable 4mm CBD stone. It also showed narrowing of the proximal common hepatic duct. [facility] again was contacted, and indeed they accepted Ms Esquivel in transfer for ERCP. Patient kept abreast of the above. Patient was transferred to [facility] via ambulance in stable, satisfactory condition with acceptable vital signs. Discharge exam: gen - NAD, pleasant, a/o x 3 eyes - no icterus mouth - MMM heart - RRR, s1 s2, no murmur lungs - CTA b/l abd - soft, tender RUQ/high epigastric region; BS+; no HSM; no peritoneal signs ext - no edema, pulses 2+ b/l skin - no jaundice I personally spent at least 40 minutes of time with care coordination with [facility] via phone. RUQ u/s, MRCP images "pushed" to [facility] via the PACS system. Kayode Galarza MD Coding Level of Care Code INP/OBS EV SAME DAY LV 3,85MIN Diagnoses Acute cholecystitis K81.0 Choledocholithiasis K80.50 Cholelithiasis K80.20 Nausea & vomiting R11.2 Eosinophilic esophagitis K20.0 Idiopathic anaphylaxis T78.2XXA
--- NOTE | 2023-06-12 08:19 | Electrocardiogram Report ---
Test Reason : Blood Pressure : / mmHG Vent. Rate : 055 BPM Atrial Rate : 055 BPM P-R Int : 182 ms QRS Dur : 094 ms QT Int : 424 ms P-R-T Axes : 023 -35 039 degrees QTc Int : 405 ms Sinus bradycardia Incomplete right bundle branch block Low voltage QRS Poor R wave progression, consider anterior ME vs. lead placement vs. LVH Abnormal ECG No previous ECGs available Confirmed by Jay Jay Rodriguez ([id number]) on 06/12/2023 8:18:55 AM Referred By: REFERRED SELF Confirmed By:Jay Jay Rodriguez
== END 2023-06-11 23:46 | disposition short-term general hospital (02) | DRG 445 ==
LOC: ED 23:45 → SUATTDRO 06-11 04:02 → EDINP 06-11 04:02